=== PATIENT | female | born 1995 | race Caucasian/White ===

== ENCOUNTER 2021-09-10 03:34 | Emergency (ER) | payer OTHER, BC ==
[~2021-09-10] VITALS: Ht 162.6 cm; Wt 70.0 kg
[2021-09-10 03:39] VITALS: BP 127/72
[2021-09-10 03:45] VITALS: BP 124/86
[2021-09-10 04:00] VITALS: BP 119/80
[2021-09-10 04:15] VITALS: BP 133/85
[2021-09-10 04:21] VITALS: BP 133/85
[2021-09-10] MEDS ORDERED: BUSPIRONE5 MG PO (04:25)
[2021-09-10] MEDS ORDERED: WELLBUTRIN200 MG PO (04:26)
== END 2021-09-10 04:48 | disposition home or self-care (01) | DRG 605 ==
LOC: ED 03:34
DX: S80.01XA Contusion of right knee, initial encounter (principal); V40.5XXA Car driver injured in collision with pedestrian or animal in traffic accident, initial encounter; Y92.410 Unspecified street and highway as the place of occurrence of the external cause